=== PATIENT | female | born 1995 ===

== ENCOUNTER 2020-07-17 05:15 | Day surgery (SDC) | payer OTHER ==
[2020-07-17] MEDS ORDERED: PERCOCET 5-3251 EACH PO (08:36)
[2020-07-17] MEDS ORDERED: COLACE100 MG PO (08:36)
[2020-07-17] MEDS ORDERED: NEURONTIN300 MG PO (08:36)
== END 2020-07-17 13:00 | disposition home or self-care (01) ==
LOC: CIR.AMB 05:15 → CERTIFICAD 11:00 → CIR.AMB 13:00
PROVIDERS: ATTEND Surgery
DX: K64.8 Other hemorrhoids (principal); Z20.828 Contact with and (suspected) exposure to other viral communicable diseases

== ENCOUNTER 2020-07-20 14:02 | Emergency (ER) | payer OTHER ==
[~2020-07-20] VITALS: Ht 175.3 cm; Wt 129.3 kg
[~2020-07-20 14:02] MED LIST: COLACE100 MG PO; NEURONTIN300 MG PO; PERCOCET 5-3251 EACH PO
[2020-07-20] MEDS ORDERED: GABAPENTIN300 M2 PO (14:40)
[2020-07-20] MEDS ORDERED: OXYC1TAB9 PO (14:40)
[2020-07-20] MEDS ORDERED: DOCUSATE SODIU100 MG PO (14:40)
[2020-07-20] MEDS ORDERED: BUTALB-ACETAMI1 EACH PO (19:51)
== END 2020-07-20 20:01 | disposition home or self-care (01) ==
LOC: ER 14:02
DX: R11.2 Nausea with vomiting, unspecified (principal); R51.9 Headache, unspecified

== ENCOUNTER 2020-07-31 12:31 | Inpatient (IN) | payer OTHER ==
[~2020-07-31] VITALS: Ht 175.3 cm; Wt 127.0 kg
[~2020-07-31 12:31] MED LIST changes: +BUTALB-ACETAMI1 EACH PO; +DOCUSATE SODIU100 MG PO; +GABAPENTIN300 M2 PO; +OXYC1TAB9 PO
[2020-08-02] MEDS ORDERED: KETO10TA2 PO (09:55)
[2020-08-02] MEDS ORDERED: NEURONTIN300 MG PO (09:56)
[2020-08-02] MEDS ORDERED: POLY119PG PO (09:56)
[2020-08-02] MEDS ORDERED: DERMOPLAST FIRS78 GM TOP (09:56)
== END 2020-08-02 12:15 | disposition home or self-care (01) | DRG 395 ==
LOC: ER 12:31 → SURH 21:53
PROVIDERS: ADMIT Surgery; ATTEND Surgery
PROC: BW21YZZ Computerized Tomography (CT Scan) of Abdomen and Pelvis using Other Contrast (ICD-10-PCS; 2020-07-31)
PROC: 0DBQ8ZX Excision of Anus, Via Natural or Artificial Opening Endoscopic, Diagnostic (ICD-10-PCS; 2020-08-01)
PROC: 0DCP8ZZ Extirpation of Matter from Rectum, Via Natural or Artificial Opening Endoscopic (ICD-10-PCS; principal; 2020-08-01 07:00)
DX: K64.1 Second degree hemorrhoids (principal); K56.41 Fecal impaction; T81.89XA Other complications of procedures, not elsewhere classified, initial encounter; Z98.890 Other specified postprocedural states; Z20.828 Contact with and (suspected) exposure to other viral communicable diseases